=== PATIENT | male | born 1995 | race African-American/Black ===

== ENCOUNTER 2022-06-07 23:51 | Emergency (ER) | payer BC, OTHER ==
[2022-06-08 00:25] VITALS: PULSE 85; RESP 20; TEMP 97.5; BMI 22.4
[2022-06-08] MEDS ORDERED: ACETAMINOPHEN 500 MG TABLET (FP) PO ONE (01:35)
[2022-06-08] MEDS ORDERED: ACETAMINOPHEN 325 MG TABLET (FP) ONE (02:05)
[2022-06-08 02:27] LABS: BASO % 0.5 % (0-2.0); EOS % 1.3 % (0-4.5); HEMATOCRIT 42.9 % (35.4-49); HEMOGLOBIN 13.8 GM/dL (11.7-16.9); LYMPH % 58.2 % (8-40); MCH 29.9 pg (25.7-33.7); MCHC 32.3 g/dl (32.0-35.9); MEAN CELL VOLUME 92.5 fl (80-96); MEAN PLT VOLUME 7.8 fl (7.5-11.1); MONO % 8.9 % (3.8-10.2); NEUT % 31.1 % (42.8-82.8); PLATELET COUNT 204 10^3/uL (134-434); RBC 4.63 M/mm3 (4.00-5.60); RDW 12.1 % (11.9-15.9); WHITE BLOOD COUNT 4.7 K/mm3 (4.0-10.0)
[2022-06-08 02:40] LABS: ALBUMIN 3.8 g/dl (3.4-5.0); BLOOD UREA NITROGEN 15.8 mg/dL (7-18); CALCIUM 9.1 mg/dL (8.5-10.1)
[2022-06-08 02:43] LABS: CREATININE 1.1 mg/dL (0.55-1.3)
[2022-06-08 02:45] LABS: TOT PROT 7.3 g/dl (6.4-8.2)
[2022-06-08 03:43] VITALS: BP 119/78
== END 2022-06-08 04:10 | disposition home or self-care (01) ==
LOC: JER 23:51
DX: R07.9 Chest pain, unspecified (principal)
CPT/HCPCS: 36415; 71046-TC-FY; 80053; 84484; 85025; 93005; 93010; 99285-25